=== PATIENT | male | born 1990 | race Caucasian/White ===

== ENCOUNTER 2019-01-10 10:41 | Emergency (ER) | payer BC, OTHER ==
[~2019-01-10] VITALS: Ht 177.8 cm; Wt 53.7 kg
[2019-01-10 10:41] VITALS: BP 153/86
[2019-01-10] MEDS ORDERED: NAPR-50 PO (11:58)
[2019-01-10] MEDS ORDERED: ROBA500T PO (11:58)
[2019-01-10] MEDS ORDERED: MEDR4PAK PO (11:58)
== END 2019-01-10 12:05 | disposition home or self-care (01) ==
LOC: M ED 10:41
DX: M54.41 Lumbago with sciatica, right side (principal); M54.42 Lumbago with sciatica, left side

== ENCOUNTER 2021-11-23 20:34 | Emergency (ER) | payer BC, OTHER ==
[~2021-11-23] VITALS: Ht 175.3 cm; Wt 131.7 kg
[~2021-11-23 20:34] MED LIST: MEDR4PAK PO; NAPR-837 PO; ROBA500T PO
[2021-11-23 20:35] VITALS: BP 135/84
[2021-11-23] MEDS ORDERED: BOOSTRIX/ADACEL VACCINE (DIPHTH/PERTUSS/ACELL/TETANUS) 0.5ML SYR IM ONE (21:05)
[2021-11-23] MEDS ORDERED: LIDOCAINE 1% MDV 20ML VIAL SC ONE (21:05)
[2021-11-23] MEDS ORDERED: CEPH500C PO (23:05)
[2021-11-23] MEDS ORDERED: CEPHALEXIN 500 MG CAP PO ONE (23:10)
== END 2021-11-23 23:20 | disposition home or self-care (01) ==
LOC: M ED 20:34
DX: S51.812A Laceration without foreign body of left forearm, initial encounter (principal); W00.0XXA Fall on same level due to ice and snow, initial encounter; Y92.009 Unspecified place in unspecified non-institutional (private) residence as the place of occurrence of the external cause; Y93.9 Activity, unspecified; Y99.9 Unspecified external cause status

== ENCOUNTER 2022-08-12 15:36 | Inpatient (IN) | payer BC ==
[~2022-08-12] VITALS: Ht 175.3 cm; Wt 120.2 kg
[~2022-08-12 15:36] MED LIST changes: +CEPH500C PO
[2022-08-12 17:07] LABS: HEMATOCRIT 46.7 % (42.0-52.0); MEAN CORPUSCULAR HEMOGLOBIN 27.9 pg (27.0-33.0); MEAN CORPUSCULAR HGB CONC 32.1 g/dl (32.0-36.5); MEAN CORPUSCULAR VOLUME 86.8 fl (80.0-96.0); PLATELET COUNT, AUTOMATED 267 10^3/uL (150-450); RED BLOOD COUNT 5.38 10^6/uL (4.30-6.10); WHITE BLOOD COUNT 13.5 10^3/uL (4.0-10.0)
[2022-08-12 17:39] LABS: AMPHETAMINES LEVEL URINE NEGATIVE (NEGATIVE); BARBITURATES URINE NEGATIVE (NEGATIVE); BENZODIAZEPINES URINE NEGATIVE (NEGATIVE); CANNABINOIDS URINE NEGATIVE (NEGATIVE); COCAINE METABOLITE URINE NEGATIVE (NEGATIVE); METHADONE URINE NEGATIVE (NEGATIVE); OPIATES URINE NEGATIVE (NEGATIVE); PHENCYCLIDINE URINE NEGATIVE (NEGATIVE)
[2022-08-12 17:40] LABS: RSV AMPLIFICATION NEGATIVE (NEGATIVE)
[2022-08-12 17:41] LABS: ACETAMINOPHEN LEVEL < 2.0 UG/ML (10.0-30.0); ALBUMIN 4.3 GM/DL (3.2-5.2); ALT/SGPT 32 U/L (12-78); BILIRUBIN,DIRECT 0.2 MG/DL (0.0-0.2); BILIRUBIN,TOTAL 0.7 MG/DL (0.2-1.0); BLOOD UREA NITROGEN 10 MG/DL (7-18); CALCIUM LEVEL 9.7 MG/DL (8.5-10.1); CARBON DIOXIDE LEVEL 29 MEQ/L (21-32); CHLORIDE LEVEL 103 MEQ/L (98-107); CREATININE FOR GFR 1.09 MG/DL (0.70-1.30); ETHYL ALCOHOL (ETHANOL) < 0.003 % (0.000-0.010); GLOMERULAR FILTRATION RATE > 60.0 (>60); GLUCOSE, FASTING 91 MG/DL (70-100); POTASSIUM SERUM 4.2 MEQ/L (3.5-5.1); SALICYLATE LEVEL < 1.7 MG/DL (5.0-30.0); SODIUM LEVEL 136 MEQ/L (136-145); TOTAL PROTEIN 7.9 GM/DL (6.4-8.2)
[2022-08-12] MEDS ORDERED: HOME MED LIST COMPLETE! XX SCH (19:10)
[2022-08-15] MEDS ORDERED: MOM 30ML SUSPENSION UDC PO PRN (03:00)
[2022-08-15] MEDS ORDERED: MAALOX 30 ML SUSP *UDC PO PRN (03:00)
[2022-08-15] MEDS ORDERED: ACETAMINOPHEN TAB 650MG DOSE (2X325MG) PO PRN (03:00)
[2022-08-15 04:55] VITALS: BP 141/84
[2022-08-15] MEDS: SERTRALINE HCL 25 MG TABLET PO SCH (12:30)
[2022-08-15] MEDS: busPIRone 5 MG TAB PO SCH ×2 (12:30→21:12)
[2022-08-15] MEDS: amLODIPine 5 MG TAB PO SCH (12:36)
[2022-08-15 13:30] LABS: CHOLESTEROL RISK RATIO 3.39 (<5)
[2022-08-15 14:09] LABS: HEMOGLOBIN A1c 5.7 %
[2022-08-15 16:14] VITALS: BP 123/78
[2022-08-15] MEDS: traZODone 50 MG TAB PO PRN (21:12)
[2022-08-16 06:19] VITALS: BP 131/59
[2022-08-16] MEDS: SERTRALINE HCL 25 MG TABLET PO SCH (08:29)
[2022-08-16] MEDS: amLODIPine 5 MG TAB PO SCH (08:29)
[2022-08-16] MEDS: busPIRone 5 MG TAB PO SCH ×2 (08:33→21:59)
[2022-08-16 16:10] VITALS: BP 140/83
[2022-08-16] MEDS: traZODone 50 MG TAB PO PRN (21:59)
[2022-08-17 06:28] VITALS: BP 141/80
[2022-08-17] MEDS: amLODIPine 5 MG TAB PO SCH (08:26)
[2022-08-17] MEDS: SERTRALINE HCL 50 MG TAB PO SCH (08:26)
[2022-08-17] MEDS: busPIRone 5 MG TAB PO SCH ×2 (08:26→22:00)
[2022-08-17 16:15] VITALS: BP 129/70
[2022-08-17] MEDS: traZODone 50 MG TAB PO PRN (22:01)
[2022-08-18 06:17] VITALS: BP 144/73
[2022-08-18] MEDS: busPIRone 5 MG TAB PO SCH (08:21)
[2022-08-18 08:22] VITALS: BP 144/73
[2022-08-18] MEDS: amLODIPine 5 MG TAB PO SCH (08:22)
[2022-08-18] MEDS: SERTRALINE HCL 50 MG TAB PO SCH (08:22)
[2022-08-18] MEDS ORDERED: AMLO1TAB24 PO (08:57)
[2022-08-18] MEDS ORDERED: TRAZ-252 PO (08:57)
[2022-08-18] MEDS ORDERED: SERT50TA29 PO (08:57)
[2022-08-18] MEDS ORDERED: BUSP5TA PO (08:57)
== END 2022-08-18 13:06 | disposition home or self-care (01) | DRG 756 ==
LOC: M ED 15:36 → M ED INP 08-15 02:56 → M PSY 08-15 04:45
PROVIDERS: ADMIT Student in an Organized Health Care Education/Training Program; ATTEND Psychiatry & Neurology Psychiatry
DX: F41.1 Generalized anxiety disorder (principal); F43.21 Adjustment disorder with depressed mood; Z20.822 Contact with and (suspected) exposure to COVID-19; R45.851 Suicidal ideations; Z63.0 Problems in relationship with spouse or partner; D72.829 Elevated white blood cell count, unspecified; I42.2 Other hypertrophic cardiomyopathy; R03.0 Elevated blood-pressure reading, without diagnosis of hypertension

== ENCOUNTER → 2022-09-26 | Outpatient (REF) | payer BC ==
[~2022-09-26] MED LIST changes: +AMLO1TAB24 PO; +BUSP5TA PO; +SERT50TA29 PO; +TRAZ-252 PO
[2022-09-26 12:53] LABS: BASO # 0.1 10^3/uL (0.0-0.2); BASO % 0.7 % (0.0-1.0); EOS # 0.1 10^3/uL (0.0-0.5); HEMATOCRIT 45.5 % (42.0-52.0); HEMOGLOBIN 14.5 g/dl (13.5-17.5); LYMPH # 1.7 10^3/uL (1.5-5.0); LYMPH % 20.3 % (24.0-44.0); MEAN CORPUSCULAR HEMOGLOBIN 28.6 pg (27.0-33.0); MEAN CORPUSCULAR HGB CONC 31.9 g/dl (32.0-36.5); MEAN CORPUSCULAR VOLUME 89.7 fl (80.0-96.0); MONO # 0.5 10^3/uL (0.0-0.8); MONO % 6.3 % (2.0-8.0); NEUTROPHILS # 5.9 10^3/uL (1.5-8.5); NEUTROPHILS % 71.2 % (36.0-66.0); PLATELET COUNT, AUTOMATED 251 10^3/uL (150-450); RED BLOOD COUNT 5.07 10^6/uL (4.30-6.10); WHITE BLOOD COUNT 8.3 10^3/uL (4.0-10.0)
[2022-09-26 13:34] LABS: ALT/SGPT 30 U/L (12-78); BILIRUBIN,TOTAL 0.9 MG/DL (0.2-1.0); BLOOD UREA NITROGEN 10 MG/DL (7-18); CALCIUM LEVEL 8.8 MG/DL (8.5-10.1); CARBON DIOXIDE LEVEL 26 MEQ/L (21-32); CHLORIDE LEVEL 107 MEQ/L (98-107); CHOLESTEROL LEVEL 131 MG/DL (<200); CHOLESTEROL RISK RATIO 3.195 (<5); CREATININE FOR GFR 1.06 MG/DL (0.70-1.30); GLOMERULAR FILTRATION RATE > 60.0 (>60); GLUCOSE, FASTING 94 MG/DL (70-100); HDL CHOLESTEROL 41 MG/DL (>40); LDL CHOLESTEROL 76 MG/DL (<100); NON-HDL-C 90 MG/DL; POTASSIUM SERUM 4.4 MEQ/L (3.5-5.1); SODIUM LEVEL 140 MEQ/L (136-145); TOTAL PROTEIN 7.1 GM/DL (6.4-8.2); TRIGLYCERIDES LEVEL 70 MG/DL (<150)
[2022-09-26 13:40] LABS: HEMOGLOBIN A1c 5.3 %
[2022-09-26 14:10] LABS: TOTAL 25(OH) VITAMIN D 31.4 NG/ML (30.0-100.0)
[2022-09-26 14:47] LABS: HEPATITIS C VIRUS ABY INDEX < 0.0 INDEX (<0.8); HIV 1&2 SCREEN CENTAUR NEGATIVE (NEGATIVE)
== END ==
LOC: M LAB REF 12:03
PROVIDERS: ATTEND Nurse Practitioner Family
DX: Z13.228 Encounter for screening for other metabolic disorders (principal); Z11.3 Encounter for screening for infections with a predominantly sexual mode of transmission

== ENCOUNTER 2023-05-28 12:49 | Emergency (ER) | payer BC, SELFPAY ==
[~2023-05-28] VITALS: Ht 175.3 cm; Wt 127.6 kg
[2023-05-28 16:08] VITALS: BP 135/64; TEMP 98; O2SAT 99
== END 2023-05-28 16:36 | disposition home or self-care (01) ==
LOC: M ED 12:49
DX: S93.492A Sprain of other ligament of left ankle, initial encounter (principal); W10.8XXA Fall (on) (from) other stairs and steps, initial encounter; Y92.009 Unspecified place in unspecified non-institutional (private) residence as the place of occurrence of the external cause; Y93.01 Activity, walking, marching and hiking; Y99.8 Other external cause status; I10 Essential (primary) hypertension; F41.9 Anxiety disorder, unspecified

== ENCOUNTER 2023-11-10 14:48 | Emergency (ER) | payer OTHER, SELFPAY ==
[~2023-11-10] VITALS: Ht 175.3 cm; Wt 128.9 kg
[2023-11-10] MEDS ORDERED: NAPR220C14 PO (15:52)
[2023-11-10] MEDS ORDERED: KETOROLAC 30 MG/ML 1ML VIAL IM ONE (17:40)
[2023-11-10] MEDS ORDERED: METH-1165 PO (19:10)
[2023-11-10] MEDS ORDERED: KETO10TAB PO (19:10)
[2023-11-10 19:17] VITALS: BP 137/89; TEMP 98.2; O2SAT 100
== END 2023-11-10 19:40 | disposition home or self-care (01) ==
LOC: M ED 14:48
DX: S33.5XXA Sprain of ligaments of lumbar spine, initial encounter (principal); M43.16 Spondylolisthesis, lumbar region; W10.8XXA Fall (on) (from) other stairs and steps, initial encounter; Y92.009 Unspecified place in unspecified non-institutional (private) residence as the place of occurrence of the external cause; Y93.9 Activity, unspecified
CPT/HCPCS: 72110; 96372; 99283; J1885

== ENCOUNTER 2024-03-29 10:21 | Emergency (ER) | payer OTHER ==
[~2024-03-29] VITALS: Ht 177.8 cm; Wt 127.8 kg
[~2024-03-29 10:21] MED LIST changes: +KETO10TAB PO; +METH-1165 PO; +NAPR220C14 PO
[2024-03-29] MEDS ORDERED: MUCI1TAB16 PO (10:32)
[2024-03-29] MEDS ORDERED: VENTAER INH (11:39)
[2024-03-29] MEDS ORDERED: DOXY-440 PO (11:39)
[2024-03-29] MEDS ORDERED: BENZ200C70 PO (11:39)
[2024-03-29 11:51] VITALS: BP 140/83; TEMP 97.4; O2SAT 98
== END 2024-03-29 11:53 | disposition home or self-care (01) ==
LOC: M ED 10:21
DX: R05.9 Cough, unspecified (principal); J06.9 Acute upper respiratory infection, unspecified; Z79.51 Long term (current) use of inhaled steroids; Z79.899 Other long term (current) drug therapy; Z79.2 Long term (current) use of antibiotics

== ENCOUNTER 2024-05-14 11:32 | Emergency (ER) | payer OTHER ==
[~2024-05-14] VITALS: Ht 175.3 cm; Wt 129.4 kg
[~2024-05-14 11:32] MED LIST changes: +BENZ200C70 PO; +DOXY-440 PO; +MUCI1TAB16 PO; +VENTAER INH
[2024-05-14] MEDS ORDERED: METH-1165 (11:40)
[2024-05-14] MEDS ORDERED: KETO10TAB (11:40)
[2024-05-14] MEDS ORDERED: KETOROLAC 30 MG/ML 1ML VIAL IV ONE (12:40)
[2024-05-14] MEDS: ACETAMINOPHEN 500 MG TAB PO ONE (12:56)
[2024-05-14] MEDS: KETOROLAC 30 MG/ML 1ML VIAL IM ONE (12:56)
[2024-05-14] MEDS: LIDOCAINE 5% (LIDODERM) PATCH TD ONE (13:01)
[2024-05-14] MEDS ORDERED: CYCL5TAB PO (15:01)
[2024-05-14] MEDS ORDERED: MELO7.5T35 PO (15:01)
[2024-05-14 15:15] VITALS: BP 136/80; TEMP 98.4; O2SAT 96
== END 2024-05-14 15:30 | disposition home or self-care (01) ==
LOC: M ED 11:32
DX: M47.26 Other spondylosis with radiculopathy, lumbar region (principal); Z79.51 Long term (current) use of inhaled steroids; Z79.2 Long term (current) use of antibiotics; Z79.899 Other long term (current) drug therapy
CPT/HCPCS: 72131; 96372; 99283; J1885